=== PATIENT | male | born 1980 | race Native Hawaiian/Other Pacific Islander ===

== ENCOUNTER 2019-12-13 12:48 | Outpatient (CLI) | payer OTHER ==
[~2019-12-13 12:48] MED LIST: AMOXICILLIN250 M2 PO; BIAXIN500 MG OR; PRILOSEC OTC20 MG PO
== END 2019-12-14 03:40 | disposition home or self-care (01) ==
LOC: RAD 12:48
DX: M25.522 Pain in left elbow (principal)

== ENCOUNTER 2019-12-19 18:42 | Emergency (ER) | payer OTHER ==
[~2019-12-19] VITALS: Ht 180.3 cm; Wt 122.5 kg
[2019-12-19 19:29] LABS: PLATELET COUNT 232 K/uL (142-355)
[2019-12-19 19:39] LABS: POTASSIUM 3.4 mmol/L (3.6-5.2)
[2019-12-19 19:55] LABS: PARTIAL THROMBOPLASTIN TIME 24.9 SECONDS (24.5-33.6)
[2019-12-19 20:30] VITALS: BP 136/88; TEMP 98.2
== END 2019-12-19 20:30 | disposition home or self-care (01) ==
LOC: ED 18:42
PROVIDERS: Hospitalist
DX: K64.4 Residual hemorrhoidal skin tags (principal)
CPT/HCPCS: 36415; 80053; 82272; 85027; 85610; 85730; 96360; 99284

== ENCOUNTER 2020-07-27 07:56 | Outpatient (CLI) | payer OTHER | END 2020-07-27 19:52 | disposition home or self-care (01) | LOC: RAD 07:56 | PROVIDERS: ATTEND Nurse Practitioner Family | DX: R19.05 Periumbilic swelling, mass or lump (principal) ==

== ENCOUNTER 2020-10-25 07:43 | Emergency (ER) | payer OTHER ==
[~2020-10-25] VITALS: Ht 180.3 cm; Wt 122.5 kg
[2020-10-25 07:50] VITALS: TEMP 98.4
[2020-10-25 09:38] LABS: PLATELET COUNT 198 K/uL (142-355)
[2020-10-25 09:51] LABS: POTASSIUM 4.2 mmol/L (3.6-5.2)
[2020-10-25 09:52] LABS: PARTIAL THROMBOPLASTIN TIME 25.6 SECONDS (24.5-33.6)
[2020-10-25 11:11] VITALS: BP 107/53
== END 2020-10-25 11:25 | disposition home or self-care (01) ==
LOC: ED 07:43
PROVIDERS: Hospitalist
DX: S02.2XXA Fracture of nasal bones, initial encounter for closed fracture (principal); R55 Syncope and collapse; S00.31XA Abrasion of nose, initial encounter; S00.511A Abrasion of lip, initial encounter; Y93.89 Activity, other specified; Y92.89 Other specified places as the place of occurrence of the external cause; U07.1 COVID-19
CPT/HCPCS: 36415; 80048; 80320; 84484; 85027; 85610; 85730; 87635; 96360; 96365; 96375; 99284; J0696; J1885; J2405; U0003

== ENCOUNTER 2021-03-12 17:25 | Emergency (ER) | payer OTHER ==
[~2021-03-12] VITALS: Ht 180.3 cm; Wt 113.4 kg
[2021-03-12 17:30] VITALS: TEMP 98.1
[2021-03-12 18:12] LABS: PLATELET COUNT 248 K/uL (142-355)
[2021-03-12 18:14] LABS: POTASSIUM 4.4 mmol/L (3.6-5.2)
[2021-03-12 19:00] VITALS: BP 116/73
== END 2021-03-12 19:05 | disposition home or self-care (01) ==
LOC: ED 17:25
PROVIDERS: Hospitalist
DX: R07.89 Other chest pain (principal); F41.8 Other specified anxiety disorders; R06.02 Shortness of breath
CPT/HCPCS: 80053; 82550; 83880; 84484; 85027; 85379; 93005; 99284

== ENCOUNTER 2021-04-20 08:45 | Emergency (ER) | payer OTHER ==
[~2021-04-20] VITALS: Ht 180.3 cm; Wt 113.4 kg
[2021-04-20 08:54] VITALS: TEMP 97.2
[2021-04-20 09:09] LABS: PLATELET COUNT 266 K/uL (142-355)
[2021-04-20 09:21] LABS: POTASSIUM 4.1 mmol/L (3.6-5.2)
[2021-04-20 09:36] LABS: PARTIAL THROMBOPLASTIN TIME 25.6 SECONDS (24.5-33.6)
[2021-04-20 11:33] VITALS: BP 144/89
== END 2021-04-20 11:34 | disposition home or self-care (01) ==
LOC: ED 08:45
PROVIDERS: Hospitalist
DX: J06.9 Acute upper respiratory infection, unspecified (principal); U07.1 COVID-19; R04.2 Hemoptysis
CPT/HCPCS: 80053; 85027; 85379; 85610; 85730; 87502; 87651; 99284; Q9963

== ENCOUNTER → 2021-10-19 | Outpatient (CLI) | payer OTHER ==
[2021-10-19 20:19] LABS: PLATELET COUNT 238 K/uL (142-355)
== END ==
LOC: LABW 20:00
PROVIDERS: ATTEND Nurse Practitioner Family
DX: R23.3 Spontaneous ecchymoses (principal)
CPT/HCPCS: 36415; 85027

== ENCOUNTER 2022-10-21 20:18 | Emergency (ER) | payer OTHER ==
[~2022-10-21] VITALS: Ht 180.3 cm; Wt 117.9 kg
[2022-10-21 21:02] LABS: POTASSIUM 3.9 mmol/L (3.6-5.2)
[2022-10-21 21:04] LABS: PLATELET COUNT 235 K/uL (142-355)
[2022-10-21 23:50] VITALS: BP 118/66; TEMP 97.9
== END 2022-10-21 23:50 | disposition home or self-care (01) ==
LOC: ED 20:18
PROVIDERS: Family Medicine
DX: K21.9 Gastro-esophageal reflux disease without esophagitis (principal); R07.89 Other chest pain
CPT/HCPCS: 36415; 80053; 82150; 83690; 84484; 85027; 93005; 96374; 96375; 99284; J2270; J2405; J3490; Q9963

== ENCOUNTER 2023-04-29 11:07 | Outpatient (CLI) | payer OTHER | END 2023-04-29 19:18 | disposition home or self-care (01) | LOC: RAD 11:07 | PROVIDERS: ATTEND Internal Medicine Rheumatology | DX: L40.9 Psoriasis, unspecified (principal); M06.4 Inflammatory polyarthropathy; Z68.37 Body mass index [BMI] 37.0-37.9, adult ==